=== PATIENT | male | born 1995 | race Asian ===

== ENCOUNTER 2025-02-01 16:57 | Emergency (ER) | payer OTHER, SELFPAY ==
[2025-02-01 17:19] VITALS: BP 118/77; PULSE 55; RESP 18; TEMP 37; O2SAT 98; BMI 29.8
--- NOTE | 2025-02-01 17:32 | XR_ITS ---
Examination: CT brain head without contrast. 2-D sagittal coronal reconstructions Date and time of exam:February 01, 2025, 0611 hours Comparison August 30, 2009 INDICATIONS: Onset headaches and vomiting today CTDI: vol (mGy):48.4 DLP: (mGycm):1030 Technique: Multiple CT axial sections of the brain have been obtained, 5 mm slice thickness. Contrast has not been administered. 2-D sagittal, coronal reconstructions have been obtained Low dose protocols were performed. One or more of the following dose reduction techniques were used; automated exposure control, adjustment of the mA and/or KV according to patient size, use of iterative reconstruction technique. Findings: No significant ventricular enlargement. Intra-axial or extra-axial hemorrhage density is not seen. No mass effect or midline shift Basal cisterns are not remarkable. Fourth ventricle is midline. Cranial vault intact. Impression: Negative for acute hemorrhage, mass effect or midline shift Advise clinical correlation follow up accordingly
--- NOTE | 2025-02-01 17:33 | PD.EDHA ---
ED Headache RME/HPI General Chief Complaint: Headache Stated Complaint: ONTIVEROS today, vomiting Time Seen by Provider: 02/01/25 17:00 Arrival date/time: 02/01/25 16:57 RME / HPI RME / HPI Narrative: 29-year-old male patient was brought in by family for evaluation regarding headache. Onset of symptoms several hours ago sudden onset of posterior headache, severity moderate associated with dizziness. Patient took Advil with significant improvement of the headache. Denies any upper or lower extremity weakness denies any slurred speech denies any trauma denies any fall no fever also noted. Related Data Previous Rx's ?Medication ?Instructions ?Recorded rizatriptan 10 mg disintegrating 10 mg PO Q2H PRN migraine headache 02/01/25 tablet (Maxalt-[employer]) #20 tabs rizatriptan 10 mg tablet (Maxalt) 10 mg PO Q2H PRN migraine headache 02/01/25 #20 tabs Allergies Allergy/AdvReac Type Severity Reaction Status Date / Time No Known Allergies Allergy Mild NKA Uncoded 02/01/25 17:02 Review of Systems Review of Systems Narrative Review of Systems: Review of system reviewed and within normal limits except mentioned in HPI ED Exam Narrative Physical exam: VITAL SIGNS: Reviewed. GENERAL APPEARANCE: Alert and interactive, follows commands, no acute distress, HEAD AND FACE: Non-traumatic. ENT: PERRL, pink conjunctivitis, eyelid no trauma, Mucous membrane moist. NECK: Supple, nontender, no nuchal rigidity. CHEST: No tenderness, no crepitus, no paradoxical movement, no retractions. LUNGS: Clear, well ventilated, symmetric, no rales, no wheezing, no ronchi, no stridor, good breath sounds bilaterally. HEART: Regular rate, regular rhythm, no murmur, no gallops. ABDOMEN: Soft, positive bowel sounds, nondistended, no guarding, nontender, no rebound, no masses, RECTAL: Deferred. GENITAL: Deferred. NEUROLOGICAL: Gross motor function intact sensory function intact, Appropriate for age. MUSCULOSKELETAL: low back nontender, full range of motion. EXTREMITIES: Nontender, full range of motion. SKIN: Color pink, dry, no rash, no lacerations, no abrasions, no contusions. LYMPHATICS: Deferred. Course Quality Measures none Orders Category Date Time Status CT head/brain wo con Stat Exams 02/01/25 17:32 Completed Acetaminophen Tab [Tylenol ES Tab] Med 02/01/25 17:33 Discontinued 1,000 mg PO X1 ONE Metoclopramide [Reglan] Med 02/01/25 17:33 Discontinued 10 mg PO X1 ONE Vital Signs Vital signs: Vital Signs Temperature 98.6 F 02/01/25 17:19 Pulse Rate 55 L 02/01/25 17:19 Respiratory Rate 18 02/01/25 17:19 Blood Pressure 118/77 02/01/25 17:19 Pulse Oximetry (%) 98 02/01/25 17:19 Oxygen Delivery Method Room Air 02/01/25 17:19 Headache MDM Narrative [facility] Narrative:: 29-year-old male patient was brought in by family for evaluation regarding headache. Onset of symptoms several hours ago sudden onset of posterior headache, severity moderate associated with dizziness. Patient took Advil with significant improvement of the headache. Denies any upper or lower extremity weakness denies any slurred speech denies any trauma denies any fall no fever also noted. CT scan of the head came back unremarkable. Results discussed with the patient. Prior to discharge patient headache is totally gone. Patient data External records reviewed:: None Clinical information provided by:: patient and family Social determinants that could affect healthcare access:: none Patient has the following chronic illnesses:: None How is presenting disease/condition affected by chronic disease/condition?: no chronic disease Evaluation data The following diagnostics were reviewed and interpreted by me:: radiology exam(s) Lab and/or radiology exams considered but not ordered:: None Interpretation Summary: See results in mdm Medications / Prescriptions Medications or Prescriptions considered but not ordered:: None Medication administrations:: Medication Administration History Discontinued Medications Acetaminophen (Acetaminophen 500 Mg Tablet) 1,000 mg PO X1 ONE Stop: 02/01/25 17:34 Last Admin: 02/01/25 18:38 Dose: 1,000 mg Documented By: ED Metoclopramide HCl (Metoclopramide 5 Mg Tablet) 10 mg PO X1 ONE Stop: 02/01/25 17:34 Last Admin: 02/01/25 18:37 Dose: 10 mg Documented By: ED Reglan and Tylenol Consultations Consultation(s) initiated? (list below): No Diagnosis Differential diagnosis headache: migraine, tension headache and headache Most likely diagnosis given after review of the tests above:: Headache Admission Indicated Admission indicated?: not indicated Admission Request Was there a request for admission?: No Disposition Plan Disposition Plan: Discharge Discharge Attestation Discharge Attestation: The patient and all family members were given an opportunity to ask questions and understood the discharge instructions. Discharge instructions specifically effects, indications for sooner follow up or return to the emergency department, and the expected course of current diagnosis. Patient condition: Stable Discharge Plan Plan Patient Disposition: HOME (Self Care) Discharge Disposition comment: Stable Prescriptions/Referrals Prescriptions/Med Rec: New rizatriptan [Maxalt-[employer]] 10 mg tablet,disintegrating 10 mg PO Q2H PRN (Reason: migraine headache) Qty: 20 0RF Rx Instructions: do not exceed 3 doses per 24 hrs rizatriptan [Maxalt] 10 mg tablet 10 mg PO Q2H PRN (Reason: migraine headache) Qty: 20 0RF Rx Instructions: do not exceed 3 doses per 24 hrs Referrals: No Primary/Family,Physician [Primary Care Provider] - In 1 week Problem List Clinical Impression: Headache Patient/Caregiver Discharge Instructions Education Materials: Self-Care for Headaches Additional Instructions: Thank you for the opportunity for serving you today. You are stable for discharged . You are advised to: Follow-up with your PCP in 1 to 2 days Return to ED for worsening of symptoms Increase oral fluids Take medication as prescribed Print Language: Spanish Stand Alone Forms: Faith Award Info., Patient Portal Info Letter NATAN/ZAYDA Supervising Physician NATAN/ZAYDA Supervising Physician: MD Edita
[2025-02-01] MEDS: METOCLOPRAMIDE 5 MG TABLET 10 MG PO (18:37)
[2025-02-01] MEDS: ACETAMINOPHEN 500 MG TABLET 1000 MG PO (18:38)
== END 2025-02-01 20:12 | disposition home or self-care (01) ==
PROVIDERS: Emergency Provider Emergency Medicine
DX: R51.9 Headache, unspecified (principal); R42 Dizziness and giddiness
CPT/HCPCS: 70450; 99283; A9270